=== PATIENT | female | born 1985 | race Caucasian/White ===

== ENCOUNTER → 2024-02-20 08:24 | Outpatient (REF) | payer OTHER, SELFPAY | LOC: HWRAD 08:24 | PROVIDERS: ATTENDING PHYSICIAN Nurse Practitioner Family | DX: R19.7 Diarrhea, unspecified (principal) | CPT/HCPCS: 74177; Q9967 ==

== ENCOUNTER → 2024-06-01 06:28 | Day surgery (SDC) | payer OTHER, SELFPAY | LOC: GI 06:28 | PROVIDERS: ATTENDING PHYSICIAN Internal Medicine; FAMILY PHYSICIAN Nurse Practitioner Family | DX: D50.9 Iron deficiency anemia, unspecified (principal); K62.89 Other specified diseases of anus and rectum | CPT/HCPCS: 45380; 88305 ==

== ENCOUNTER → 2024-12-23 07:55 | Outpatient (REF) | payer OTHER, SELFPAY | LOC: RAD 07:55 | PROVIDERS: ATTENDING PHYSICIAN Obstetrics & Gynecology Gynecologic Oncology; FAMILY PHYSICIAN Nurse Practitioner Family | DX: D75.839 Thrombocytosis, unspecified (principal); Z12.4 Encounter for screening for malignant neoplasm of cervix; N93.9 Abnormal uterine and vaginal bleeding, unspecified; D25.9 Leiomyoma of uterus, unspecified; N90.89 Other specified noninflammatory disorders of vulva and perineum | CPT/HCPCS: 76830; 76856 ==

== ENCOUNTER → 2024-12-29 07:06 | Outpatient (REF) | payer OTHER, SELFPAY ==
[2024-12-29 07:33] LABS: % Basophils 0.6 % (0-2); % Eosinophils 1.8 % (0-6); % Immature Granulocytes 0.3 % (0-0.5); % Lymphocytes 39.1 % (20.5-51.1); % Neutrophils 50.2 % (42.2-75.2); Absolute Basophils 0.1 10^3/uL (0-0.2); Absolute Eosinophils 0.2 10^3/uL (0-0.7); Absolute Lymphocytes 3.8 10^3/uL (1.2-3.4); Absolute Monocytes 0.8 10^3/uL (0.1-0.6); Absolute Neutrophils 4.8 10^3/uL (1.4-6.5); Hematocrit 37.9 % (37.0-47.0); Hemoglobin 12.6 g/dL (12.0-16.0); Mean Corp Hgb Conc. 33.2 g/dL (33.0-37.0); Mean Corpuscular Hgb 29.4 pg (27.0-31.0); Mean Corpuscular Volume 88.3 fL (81.0-99.0); Mean Platelet Volume 9.3 fL (7.4-10.4); Nucleated Red Blood Cells % 0 %; Platelet Count 506 10^3/uL (130-400); Red Blood Cell Count 4.29 10^6/uL (4.20-5.40); Red Cell Dist. Width 13.4 % (11.5-14.5); White Blood Cell Count 9.6 10^3/uL (4.8-10.8)
[2024-12-29 07:35] VITALS: BP 137/87; BP_SYST 95
[2024-12-29 07:51] LABS: INR 0.86
[2024-12-29] MEDS: ATIVAN 0.5 MG IV (08:10)
[2024-12-29] MEDS: NSS (PRESERVATIVE FREE) 0.25 ML IV (08:11)
[2024-12-29] MEDS: FLUSH (NSS) 1 FLUSH IV (08:11)
[2024-12-29 08:50] VITALS: BP 143/82; BP_SYST 89
[2024-12-29 08:55] VITALS: BP 127/100; BP_SYST 88
[2024-12-29 09:00] VITALS: BP 139/86; BP_SYST 86
[2024-12-29 09:05] VITALS: BP 139/80; BP_SYST 81
[2024-12-29 09:20] VITALS: BP 139/80
== END ==
LOC: RADI 07:06
PROVIDERS: Obstetrics & Gynecology Gynecologic Oncology; ATTENDING PHYSICIAN Internal Medicine Hematology & Oncology; FAMILY PHYSICIAN Physician Assistant; REFERRING PHYSICIAN Nurse Practitioner Family
DX: D75.839 Thrombocytosis, unspecified (principal); Z01.818 Encounter for other preprocedural examination
CPT/HCPCS: 88305; 88311; 88312; 36415; 38222; 77012; 85025; 85610; 88313

== ENCOUNTER → 2024-12-31 14:05 | Outpatient (REF) | payer OTHER, SELFPAY | LOC: PAVMRI 14:05 | PROVIDERS: ATTENDING PHYSICIAN Physician Assistant Surgical; FAMILY PHYSICIAN Nurse Practitioner Family | DX: D75.839 Thrombocytosis, unspecified (principal); Z12.4 Encounter for screening for malignant neoplasm of cervix; N93.9 Abnormal uterine and vaginal bleeding, unspecified; D25.9 Leiomyoma of uterus, unspecified; N90.89 Other specified noninflammatory disorders of vulva and perineum | CPT/HCPCS: 72197; A9575 ==

== ENCOUNTER 2025-06-15 06:16 | Day surgery (SDC) | payer OTHER, SELFPAY ==
[2025-06-01 13:25] VITALS: BMI 39.2
--- NOTE | 2025-06-13 14:50 | W.CON.GYNONC ---
Chief Complaint
-
abnormal uterine bleeding
History of Present Illness
39�year�old G0 white female presenting for consultation regarding consideration of a hysterectomy. 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 She had seen somebody within the last couple of years and she did not like their interaction. She has been told that
she has obesity and that is the cause of many of her problems.
Gynecologic history significant for menarche at age 13 menstrual cycles occurring every 30 days lasting 7 to 9 days, she uses
combination of tampons and pads.
She has been seen in this office for anemia and thrombocytosis and has been on iron supplementation and apparently the
conditions have improved.
Past medical history significant for C. difficile, iron deficiency anemia, , Obesity
Past surgical history significant for resection of lipoma in her neck
Social history single, works at 3 different positions including [employer], [employer] as well as [employer]. She denies tobacco drug and
alcohol use
Family history significant for father with stroke and diverticulitis, mother with type 2 diabetes, grandmother with colon cancer
Screening studies, colonoscopy done last year because of C. difficile negative for polyps or malignancy. She has not had a
mammogram
Medical History
Allergies
Allergies reflect when allergies were last updated in [employer].
azithromycin (From Zithromax) Allergy (Verified 06/09/25 10:16)
Hives
house dust Allergy (Verified 06/09/25 10:16)
congestion
Penicillins Allergy (Verified 06/09/25 10:16)
Anaphylaxis
wool Allergy (Verified 06/09/25 10:16)
Rash
Physical Exam
Physical Exam
External normal labia, urethra, anus.
Vagina: Normal mucosa.
Cervix: normal appearance, no discharge.
Uterus: normal size.
Adnexa: No pelvic mass.
RVE: no masses or nodularity
General: Well developed, well nourished patient. In no acute distress. obese body habitus.
Head: Atraumatic and normocephalic.
Eyes: EOMI. Sclerae are anicteric.
Ears, Nose, Throat, and Mouth: Normal oral mucosa and oropharynx.
Neck: No thyromegaly. No cervical lymphadenopathy.
Lungs: Clear to auscultation. Good air movement bilaterally.
Cardiac: Regular rate. Regular rhythm. No murmurs appreciated.
Abdomen: Abdomen is soft. Non�tender to palpation. Non�distended.
Extremities: No edema.
Hematologic/Lymphatic: No palpable lymphadenopathy.
Musculoskeletal: Normal range of motion. Strength and Tone are normal.
papular wound like lesions scattered on arms bilateral. no lesions on legs or trunk, possible similar lesion at hairline.
Neurologic: Speech is fluent. Normal gait and station. Cranial nerves intact.
Results
-
[facility]
[address] [place] [address]
[phone]
Patient Name: BINDU CUNHA
: 1985
Unit Number: [id number]
Age/Sex: 39/F
Patient
Location: [facility]
Order Provider: Zenon Ayoub PA-C
Exam Service Date: 12/31/24

Magnetic Resonance Imaging Rpt
SignedOrder #:[id number]
Exams: MR Pelvis W/o & With Contrast
MR Pelvis W/o  With Contrast: 12/31/2024 2:45 PM
INDICATION: 39 years old Female. Fibroids.
COMPARISON: Ultrasound pelvis 12/23/2024.
TECHNIQUE: Multiplanar multisequence MR imaging of the pelvis was performed before and after intravenous administration of gadolinium contrast agent.
FINDINGS:
UTERUS:
Orientation: Anteverted.
Masses: Right anterior subserosal uterine body fibroid measures approximately 3.3 x 2.4 x 2.1 cm.
Endometrium: 9 mm.
Junctional zone: Unremarkable.
Cervix: There are incidental nabothian cysts present.
RIGHT OVARY: 2.7 cm dominant follicle.
LEFT OVARY: Follicular changes are present.
FREE FLUID: None.
URINARY BLADDER: Unremarkable.
BOWEL: Visualized bowel unremarkable.
LYMPH NODES: Unremarkable.
MUSCULOSKELETAL: No suspicious osseous abnormality.
IMPRESSION:
Subserosal uterine fibroid measuring 3.3 x 2.4 x 2.1 cm.
Electronically signed by Mundo Galo, 12/31/2024 9:37 PM
Impression / Plan
-
I reviewed the images of her US and MRI and she has a leiomyoma.enddometrium is normal
She does have abnormal uterine bleeding and recently diagnosed iron deficiency anemia
Pap smear was done. and was normal
she is very clear that her ultimate wish which is to have her uterus and cervix removed. Not interested in any medical management
Patient is scheduled for total laparoscopic hysterectomy robotic assisted with bilateral salpingectomy in early June.
I went through the procedure with the patient in detail I reviewed risk benefits and alternatives, we reviewed the recovery process.
Her questions were answered, informed consent was signed in the office today.
She will see me postop 2 weeks after surgery
[2025-06-15] VITALS (12 sets, daily range): BP systolic 123–144; BP diastolic 69–88; BMI 39.2
[2025-06-15] MEDS: TYLENOL 1000 MG PO (11:46)
[2025-06-15] MEDS: NEURONTIN 300 MG PO (11:46)
[2025-06-15] MEDS: CELEBREX 200 MG PO (11:46)
[2025-06-15] MEDS: NORMOSOL-R/PLASMALYTE-A 1000 IV (11:47)
[2025-06-15] MEDS: HEPARIN 5000 UNITS SC (12:19)
[2025-06-15] MEDS: VANCOCIN 530 MG IV (12:20)
--- NOTE | 2025-06-15 15:01 | OR.RPT ---
Operative Report
Operative Report
Date of Procedure: 06/15/2025
Primary Surgeon: Adrian Peguero MD
Assisting Surgeon: Zenon Ayoub PA-C
Pre-op Diagnosis: Abnormal uterine bleeding, not responding to medical treatment
Post-op Diagnosis: Same
Procedure Performed:
Robotic Total Laparoscopic Hysterectomy, bilateral salpingectomy
Transverse abdominal plane block
Anesthesia Type: General Endotracheal intubation
Specimen / Cultures: Uterus and cervix, bilateral tubes
Estimated Blood Loss: 25 cc
Complications: None
Operative Findings: Survey of the abdomen reveals upper abdomen including liver spleen stomach diaphragms to be within normal limits, uterus and cervix bilateral tubes and ovaries appear to be within normal limits, exophytic fibroid seen anterior
right uterus. there is no ascites or pelvic implants. Appendix and visualized portions of bowel are all normal.
Procedure in detail: This patient was brought to the operating room placed in supine position, general anesthesia was administered she was intubated without any difficulty. Arms were wrapped in foam and placed along the patient's side and protected
across all joints. The patient was placed in dorsal lithotomy position using yellowfin stirrups. The patient was prepped and draped on the abdomen perineum and vagina and upper thighs. Timeout procedure was carried out, she received appropriate
antibiotics and had received DVT prophylaxis. Next Nelson catheter was placed under sterile conditions for drainage of the bladder. We examined the cervix, anterior lip was grasped with single-tooth tenaculum.
Attention was turned to the abdomen, Veress needle was inserted just below the left subcostal margin and pneumoperitoneum was created with CO2 gas up to pressure of 15 mmHg. 8 mm XI trocar was inserted just 25 cm cephalad to symphysis pubis into
the peritoneal cavity, inspection with camera revealed adhesions along the midline which were prohibitive initially but we were able to place the right and left upper quadrant 8 mm XI ports as well as 8 mm XI ports in the right and left lateral
abdomen.
Tap block was performed with a total of 60 cc ropivacaine and Decadron mixture injected 2 fingerbreadths below right and left lateral aspect of subcostal margin under direct visualization distributed equally as well as right and left mid abdomen.
Once this was completed the patient was placed in the lithotomy position a 28 degrees, robotic system was docked. Right and left round ligaments were sealed and divided anterior and posterior leaves of the broad ligament were dissected open, the
IP ligaments were isolated and a window was created between IP ligaments of ureters. both fallopian tubes were from ovries and left attached to the uterus. Utero-ovarian ligaments were sealed and divided from attachment to uterus. Next
bladder flap was sharply developed and advanced below the cervicovaginal junction. Uterine arteries were sealed after they were skeletonized and divided bilaterally. Uterosacral ligaments remainder of the paracervical tissue was sealed and divided
circumferential incision was made over the AYE ring until the specimen was detached. As it was difficult for me to see and feel the AYE ring, I removed the manipulator and placed an EEA sizer in vagina. the colpotomy was made over the sizer and the
speciman was detached. We were able to remove uterus and cervix bilateral tubes through the vagina. The vaginal apex was closed with [id number] sutures of 0 Vicryl incorporating uterosacral ligaments for support on right and left sides
separately. The vaginal cuff otherwise was closed with a running suture of V-Loc suture starting from right to the left side and a second layer coming back to the right side. Pelvis was irrigated and there was no evidence of bleeding. both
ovaries were left in situ and looked ok. All laparoscopic ports were removed robotic system was docked and pneumoperitoneum was released. The skin incisions were closed with 4-0 Monocryl in a subcuticular fashion. There was no indication to close
the fascia as all port sites were below 8 mm in size. Nelson catheter was removed uterine manipulator had already been removed and the vagina was irrigated and there was no lacerations present. Patient was awakened extubated and returned back to
recovery room stable awake and extubated condition counts of laps instruments and needle was correct x 2. I was present and scrubbed for entire procedure as dictated above
Disposition: To PACU stable awake and extubated
[2025-06-15] MEDS: ZOFRAN 4 MG IV (15:33)
[2025-06-15] MEDS: COMPAZINE 5 MG IV (15:57)
== END 2025-06-15 17:45 | disposition home or self-care (01) ==
LOC: SDS 06:16
PROVIDERS: ATTENDING PHYSICIAN Obstetrics & Gynecology Gynecologic Oncology; FAMILY PHYSICIAN Nurse Practitioner Family
DX: D25.2 Subserosal leiomyoma of uterus (principal); N73.6 Female pelvic peritoneal adhesions (postinfective); N93.9 Abnormal uterine and vaginal bleeding, unspecified
CPT/HCPCS: 58571; 36415; 86850; 86900; 86901; 88307

== ENCOUNTER → 2025-09-01 06:57 | Outpatient (REF) | payer OTHER, SELFPAY | LOC: WDC 06:57 | PROVIDERS: ATTENDING PHYSICIAN Obstetrics & Gynecology Gynecologic Oncology; FAMILY PHYSICIAN Nurse Practitioner Family | DX: Z12.31 Encounter for screening mammogram for malignant neoplasm of breast (principal); D25.9 Leiomyoma of uterus, unspecified; N93.9 Abnormal uterine and vaginal bleeding, unspecified; D75.839 Thrombocytosis, unspecified | CPT/HCPCS: 77063; 77067 ==